=== PATIENT | female | born 1935 | race Hispanic/Latino ===

== ENCOUNTER 2017-07-03 13:13 | Emergency (ER) | payer MEDICARE, OTHER ==
[2017-07-03 13:25] VITALS: O2SAT 98
--- NOTE | 2017-07-03 14:18 | ED PDOC ---
Arrival/HPI - General Chief Complaint: Trauma Time Seen by Provider: 07/03/17 13:26 Historian: Patient - History of Present Illness Narrative History of Present Illness (Text): 07/03/17 14:15 A 81 year old female, who denies any significant past medical history, presents to the emergency department via EMS status post fall. The patient reports she was at home walking with her tray of breakfast when she tripped on the rug on to the hardwood floor at 11:30 this morning. She states she hit her head on a door and fell on her knees. She states she had obtained abrasions to both of her knees, has right side neck pain, and left sided facial pain. The patient denies any loss of consciousness, chest pain, fever, nausea, vomiting, headaches , or any other complaints at this time. Time/Duration: 1-3 hours Symptom Onset: Sudden Symptom Course: Improving Quality: Aching, Pressure Activities at Onset: Light Context: Home Past Medical History - Provider Review Nursing Documentation Reviewed: Yes - Infectious Disease Hx of Infectious Diseases: None - Reproductive Menopause: No - Neurological Hx Parkinson's Disease: Yes - Psychiatric Hx Substance Use: No - Surgical History Hx Orthopedic Surgery: Yes - Anesthesia Hx Anesthesia Reactions: No Family/Social History - Physician Review Nursing Documentation Reviewed: Yes Family/Social History: No Known Family HX Smoking Status: Never Smoked Hx Alcohol Use: No Hx Substance Use: No Allergies/Home Meds Allergies/Adverse Reactions: Allergies No Known Allergies Allergy (Verified 07/03/17 13:32) Home Medications: Home Meds Medication Instructions Recorded Confirmed Allopurinol [Zyloprim] 100 mg PO DAILY 07/03/17 07/03/17 Aspirin [Ecotrin] 81 mg PO DAILY 07/03/17 07/03/17 Carbidopa/Levodopa/Entacapone 1 tab PO QID 07/03/17 07/03/17 [Carbidopa, Levodopa and Entacapone 37.5 mg-20] Escitalopram [Lexapro] 10 mg PO DAILY 07/03/17 07/03/17 Fenofibrate [Tricor] 54 mg PO DAILY 07/03/17 07/03/17 Gabapentin [Neurontin] 600 mg PO QID 07/03/17 07/03/17 Prednisone [Prednisone Intensol] 5 mg PO DAILY 10/31/17 10/31/17 Prednisone [Roni] 2.5 mg PO HS 07/03/17 07/03/17 Review of Systems - Physician Review All systems were reviewed & negative as marked: Yes - Review of Systems Constitutional: absent: Fevers Cardiovascular: absent: Chest Pain Gastrointestinal: absent: Nausea, Vomiting Musculoskeletal: Neck Pain, Other (bilateral knee pain ) Neurological: absent: Headache Physical Exam Vital Signs Reviewed: Yes Vital Signs Temp Pulse Resp BP Pulse Ox 07/03/17 17:53 98.1 F 65 17 172/79 H 98 07/03/17 17:27 65 17 172/79 H 98 07/03/17 15:26 97.8 F 62 17 178/82 H 98 07/03/17 13:25 97.9 F 63 18 180/78 H 98 Temperature: Afebrile Blood Pressure: Hypertensive Pulse: Regular Respiratory Rate: Normal Appearance: Positive for: Well-Appearing, Non-Toxic, Comfortable Pain Distress: None Mental Status: Positive for: Alert and Oriented X 3 - Systems Exam Head: Present: Atraumatic, Normocephalic Pupils: Present: PERRL Extroacular Muscles: Present: EOMI Conjunctiva: Present: Normal Mouth: Present: Moist Mucous Membranes Neck: Present: Normal Range of Motion Respiratory/Chest: Present: Clear to Auscultation, Good Air Exchange. No: Respiratory Distress, Accessory Muscle Use Cardiovascular: Present: Regular Rate and Rhythm, Normal S1, S2. No: Murmurs Abdomen: Present: Normal Bowel Sounds. No: Tenderness, Distention, Peritoneal Signs Back: Present: Normal Inspection Upper Extremity: Present: Normal Inspection. No: Cyanosis, Edema Lower Extremity: Present: Other (superficial abrasions bilaterally to knees. anterior ecchymosis bilaterally to knees.) Neurological: Present: GCS=15, CN II-XII Intact, Speech Normal Skin: Present: Warm, Dry, Normal Color. No: Rashes Psychiatric: Present: Alert, Oriented x 3, Normal Insight, Normal Concentration Medical Decision Making ED Course and Treatment: 07/03/17 14:00 Upon examination, the patient refused any pain medications. PROCEDURE: CT ORBITS WITHOUT CONTRAST. Dictator : Isidro Rizo MD Report Date : 07/03/2017 17:38:25 IMPRESSION: Unremarkable non contrast enhanced CT of the orbits. PROCEDURE: Left Knee Radiographs. Dictator : Isidro Rizo MD Report Date : 07/03/2017 17:04:24 IMPRESSION: Normal radiographs of the left knee. PROCEDURE: CT Cervical Spine without contrast Dictator : Isidro Rizo MD Report Date : 07/03/2017 17:35:01 IMPRESSION: No acute findings PROCEDURE: CT HEAD WITHOUT CONTRAST. Dictator : Sarabjit Bradford MD Report Date : 07/03/2017 17:04:31 IMPRESSION: Unremarkable unenhanced head CT. Disc results w the pt who v/u. Follow up and return precautions advised. - RAD Interpretation Radiology Orders: 07/03/17 13:51 HEAD W/O CONTRAST [CT] Stat 07/03/17 13:52 CERVICAL SPINE W/O CONTRAST [CT] Stat ORBITS/ FACIALS W/O CONTRAST [CT] Stat KNEE WITH PATELLA LEFT 3 VIEW [RAD] Stat - Scribe Statement The provider has reviewed the documentation as recorded by the Scribe Juanis Griffith Provider Scribe Attestation: All medical record entries made by the Scribe were at my direction and personally dictated by me. I have reviewed the chart and agree that the record accurately reflects my personal performance of the history, physical exam, medical decision making, and the department course for this patient. I have also personally directed, reviewed, and agree with the discharge instructions and disposition. Disposition/Present on Arrival - Present on Arrival Any Indicators Present on Arrival: No History of DVT/PE: No History of Uncontrolled Diabetes: No Urinary Catheter: No History of Decub. Ulcer: No History Surgical Site Infection Following: Orthopedic Procedures - Disposition Have Diagnosis and Disposition been Completed?: Yes Diagnosis: Knee contusion, Facial contusion Disposition: HOME/ ROUTINE Disposition Time: 17:41 Condition: STABLE Discharge Instructions (ExitCare): Contusion in Adults (ED) Additional Instructions: Please follow up with your doctor. Return to the ER for any worsening symptoms or for any other concerns. Forms: [employer] (Maltese)
[2017-07-03 15:27] VITALS: RESP 17
--- NOTE | 2017-07-03 17:06 | CT ---
PROCEDURE: CT HEAD WITHOUT CONTRAST. HISTORY: fall head injury COMPARISON: None available. TECHNIQUE: Axial computed tomography images were obtained through the head/brain without intravenous contrast. Radiation dose: Total exam DLP = 836.67 mGy-cm. This CT exam was performed using one or more of the following dose reduction techniques: Automated exposure control, adjustment of the mA and/or kV according to patient size, and/or use of iterative reconstruction technique. FINDINGS: HEMORRHAGE: No intracranial hemorrhage. BRAIN: Diffuse expansion of the ventriculosulcal and cisternal spaces is appreciated with white matter lucency compatible with diffuse cerebral atrophy and chronic microangiopathy. No mass effect or suspicious extra-axial collections identified. VENTRICLES: Unremarkable. No hydrocephalus. CALVARIUM: No destructive bony lesion or displaced fracture identified including through the skullbase. PARANASAL SINUSES: Unremarkable as visualized. No significant inflammatory changes. MASTOID AIR CELLS: Unremarkable as visualized. No inflammatory changes. OTHER FINDINGS: None. IMPRESSION: Unremarkable unenhanced head CT.
--- NOTE | 2017-07-03 17:06 | RAD ---
PROCEDURE: Left Knee Radiographs. HISTORY: Pain. COMPARISON: None. FINDINGS: BONES: Normal. No fracture. JOINTS: Normal. No osteoarthritis. JOINT EFFUSION: None. OTHER FINDINGS: None. IMPRESSION: Normal radiographs of the left knee.
[2017-07-03 17:27] VITALS: BP 172/79; PULSE 65
--- NOTE | 2017-07-03 17:36 | CT ---
PROCEDURE: CT Cervical Spine without contrast HISTORY: Fall, neck pain COMPARISON: None available. TECHNIQUE: Axial computed tomography images were obtained of the cervical spine without the use of intravenous contrast. Coronal and sagittal reformatted images were created and reviewed. Radiation dose: Total exam DLP = 502 mGy-cm. This CT exam was performed using one or more of the following dose reduction techniques: Automated exposure control, adjustment of the mA and/or kV according to patient size, and/or use of iterative reconstruction technique. FINDINGS: VERTEBRAE: No fracture. Normal alignment. No destructive bony lesion. DISCS/SPINAL CANAL/NEURAL FORAMINA: No significant central canal or neural foraminal stenosis. There is disc degeneration and facet arthropathy from C2-3 through C6-7. There is no evidence of fracture. PARASPINAL SOFT TISSUES: Unremarkable. OTHER FINDINGS: None. IMPRESSION: No acute findings
--- NOTE | 2017-07-03 17:40 | CT ---
PROCEDURE: CT ORBITS WITHOUT CONTRAST. HISTORY: fall facial injury COMPARISON: None available. TECHNIQUE: Axial CT images of the orbits were obtained. Coronal and sagittal reformats were generated. Radiation dose: Total exam DLP = 668 mGy-cm. This CT exam was performed using one or more of the following dose reduction techniques: Automated exposure control, adjustment of the mA and/or kV according to patient size, and/or use of iterative reconstruction technique. FINDINGS: RIGHT ORBIT: RIGHT BONY ORBIT: Normal. RIGHT INTRAORBITAL STRUCTURES: Globe: Normal. Extraocular muscles: Normal. Post septal space: Normal. Optic Nerve: Normal. Lacrimal Apparatus: Normal. RIGHT PRESEPTAL SOFT TISSUES: Normal. LEFT ORBIT: LEFT BONY ORBIT: Normal. LEFT INTRAORBITAL STRUCTURES: Globe: Normal. Extraocular muscles: Normal. Post septal space: Normal Optic Nerve: Normal. . Lacrimal Apparatus: Normal. LEFT PRESEPTAL SOFT TISSUES: Normal. OTHER: None. IMPRESSION: Unremarkable non contrast enhanced CT of the orbits.
[2017-07-03 17:54] VITALS: TEMP 98.1
== END 2017-07-03 17:54 | disposition home or self-care (01) ==
LOC: ED 13:13
DX: S80.02XA Contusion of left knee, initial encounter (principal); S80.01XA Contusion of right knee, initial encounter; S00.83XA Contusion of other part of head, initial encounter; W18.09XA Striking against other object with subsequent fall, initial encounter; Y92.009 Unspecified place in unspecified non-institutional (private) residence as the place of occurrence of the external cause; G20 Parkinson's disease